=== PATIENT | male | born 1980 | race Caucasian/White ===

== ENCOUNTER → 2016-12-12 | Outpatient (CLI) | payer OTHER ==
[~2016-12-12] MED LIST: ASPIR-LOW81 MG PO; ATORVASTATIN CA80 MG PO; BRILINTA90 MG PO; CARVEDILOL12.5 MG PO; GLIPIZIDE5 MG PO; LISINOPRIL20 MG PO; NICOTINE PATCH1 EAC1 TD; NITROSTAT0.4 MG SL; ROLAID PO
== END | disposition home or self-care (01) ==
LOC: NUC 10:29
DX: I25.5 Ischemic cardiomyopathy (principal)
CPT/HCPCS: 78472; A9512; A9560

== ENCOUNTER 2017-07-01 14:05 | Inpatient (IN) | payer SELFPAY ==
[~2017-07-01] VITALS: Ht 160 cm; Wt 87.0 kg
[2017-07-01 14:49] LABS: HEMATOCRIT 47.4 % (38.0-50.0); MCH 28.7 PG (29.0-34.0); MCHC 33.5 G/DL (30.0-36.0); MCV 85.6 FL (86-99); MEAN PLAT.VOLUME 9.9 uM^3 (9.0-12.4); PLATELET COUNT 260 K/uL (156-360); RBC DIS.WIDTH-CV 12.8 % (11.8-14.6); RED BLOOD COUNT 5.54 M/uL (4.00-5.50); WHITE BLOOD COUNT 16.8 K/uL (4.1-10.2)
[2017-07-01 14:58] LABS: CHLORIDE 104 mEq/L (99-109); POTASSIUM 5.1 mEq/L (3.7-5.4); SODIUM 140 mEq/L (136-147)
[2017-07-01 15:00] LABS: GLUCOSE 139 mg/dL (70-99)
[2017-07-01 15:01] LABS: ANION GAP 10 MEQ/L (2-14)
[2017-07-01 15:03] LABS: GFR ESTIMATE (CALCULATED) > 59 mL/min/
[2017-07-01 15:04] LABS: UREA NITROGEN (BUN) 13 mg/dL (9-23)
[2017-07-01 15:10] LABS: TROP-I INTERPRETATION POSITIVE
[2017-07-01 15:12] LABS: TROPONIN-I 8.28 ng/mL (0.0-0.30)
[2017-07-01 15:46] LABS: PROTHROMBIN TIME 11.1 SEC (10.2-12.9)
[2017-07-01 15:49] LABS: PTT 30.8 SEC (25-37)
[2017-07-01] MEDS ORDERED: ADVIL200 MG PO (16:57)
[2017-07-01 23:00] VITALS: BP 112/78
[2017-07-02 00:10] VITALS: BP 113/64
[2017-07-02 00:39] LABS: TROP-I INTERPRETATION POSITIVE
[2017-07-02 00:41] LABS: TROPONIN-I 31.22 ng/mL (0.0-0.30)
[2017-07-02 04:30] VITALS: BP 111/74
[2017-07-02 05:22] LABS: HEMATOCRIT 41.8 % (38.0-50.0); MCH 30.1 PG (29.0-34.0); MCHC 34.4 G/DL (30.0-36.0); MCV 87.3 FL (86-99); MEAN PLAT.VOLUME 10.3 uM^3 (9.0-12.4); PLATELET COUNT 201 K/uL (156-360); RBC DIS.WIDTH-SD 41.4 % (39-53); RED BLOOD COUNT 4.79 M/uL (4.00-5.50); WHITE BLOOD COUNT 17.8 K/uL (4.1-10.2)
[2017-07-02 05:34] LABS: HDL CHOLESTEROL 28 MG/DL (Desirable>=40); LDL CHOLESTEROL 99 mg/dL (Desirable<100); NON-HDL CHOLESTEROL 123 mg/dL (Desirable<160); TOTAL CHOLESTEROL 151 mg/dL (Desirable<200); TRIGLYCERIDES 119 MG/DL (Normal: <150)
[2017-07-02 05:46] LABS: TROP-I INTERPRETATION POSITIVE; TROPONIN-I 34.33 ng/mL (0.0-0.30)
[2017-07-02 06:47] LABS: Estimated Average Glucose 151 mg/dL (70-123); HEMOGLOBIN A1c (GLYCOHEMOGLOB) 6.9 % HGB (Below 5.7)
[2017-07-02 08:54] LABS: TROP-I INTERPRETATION POSITIVE; TROPONIN-I 44.91 ng/mL (0.0-0.30)
[2017-07-02 09:00] VITALS: BP 113/65
[2017-07-02 20:30] VITALS: BP 113/72
[2017-07-03 00:51] VITALS: BP 100/65
[2017-07-03 05:22] VITALS: BP 127/87
[2017-07-03 05:49] LABS: HEMATOCRIT 44.4 % (38.0-50.0); MCH 29.8 PG (29.0-34.0); MCV 87.6 FL (86-99); MEAN PLAT.VOLUME 11.1 uM^3 (9.0-12.4); PLATELET COUNT 193 K/uL (156-360); RBC DIS.WIDTH-SD 41.6 % (39-53); RED BLOOD COUNT 5.07 M/uL (4.00-5.50); WHITE BLOOD COUNT 20.6 K/uL (4.1-10.2)
[2017-07-03 06:14] LABS: ANION GAP 9 MEQ/L (2-14); CHLORIDE 103 MEQ/L (99-109); GFR ESTIMATE (CALCULATED) > 59 mL/min/; GLUCOSE 153 mg/dL (70-99); POTASSIUM 4.4 MEQ/L (3.7-5.4); SAMPLE HEMOLYSIS CHECK 0; SAMPLE ICTERIC CHECK 0; SAMPLE LIPEMIA CHECK 0; SODIUM 135 MEQ/L (136-147); UREA NITROGEN (BUN) 16 mg/dL (9-23)
[2017-07-03 08:00] VITALS: BP 111/68
[2017-07-03 11:22] VITALS: BP 121/71
== END 2017-07-03 14:36 | disposition short-term general hospital (02) | DRG 281 ==
LOC: EME 14:05 → EDOF 16:46 → 4EAST 16:46 → ENRESERV 17:02 → 4EAST 22:32 → ENPENDDIS 07-03 → 4EAST 07-03 14:36
PROVIDERS: Hospitalist; Internal Medicine; Internal Medicine Cardiovascular Disease; Physician Assistant
DX: I21.02 ST elevation (STEMI) myocardial infarction involving left anterior descending coronary artery (principal); T82.855A Stenosis of coronary artery stent, initial encounter; J45.909 Unspecified asthma, uncomplicated; F17.200 Nicotine dependence, unspecified, uncomplicated; I25.10 Atherosclerotic heart disease of native coronary artery without angina pectoris; Y83.1 Surgical operation with implant of artificial internal device as the cause of abnormal reaction of the patient, or of later complication, without mention of misadventure at the time of the procedure; E78.5 Hyperlipidemia, unspecified; K21.9 Gastro-esophageal reflux disease without esophagitis; I10 Essential (primary) hypertension; E11.9 Type 2 diabetes mellitus without complications; I25.5 Ischemic cardiomyopathy; Z95.1 Presence of aortocoronary bypass graft; I25.2 Old myocardial infarction; Z71.6 Tobacco abuse counseling; Z95.5 Presence of coronary angioplasty implant and graft; Z91.14 Patient's other noncompliance with medication regimen
CPT/HCPCS: 71020; 80048; 80061; 83036; 84484; 85027; 85610; 85730; 93005; 94799; 99281; 99285; C1769; C1887; J1644; J2250; J2270; J3010; J7030; J7040

== ENCOUNTER → 2018-03-23 | Outpatient (CLI) | payer OTHER ==
[~2018-03-23] MED LIST changes: +ADVIL200 MG PO
== END | disposition home or self-care (01) ==
LOC: NUC 09:30
DX: R93.1 Abnormal findings on diagnostic imaging of heart and coronary circulation (principal)
CPT/HCPCS: 78472; A9512; A9560; J1644